=== PATIENT | female | born 1990 | race Caucasian/White ===

== ENCOUNTER 2016-11-11 15:17 | Emergency (ER) | payer SELFPAY ==
[~2016-11-11] VITALS: Ht 160 cm; Wt 63.5 kg
[2016-11-11 17:50] VITALS: BP 141/75
[2016-11-11] MEDS ORDERED: cefTRIAXone SOD 1,000 MG VL ONE (18:12)
[2016-11-11] MEDS ORDERED: cefTRIAXone SOD 1,000 MG VL IM ONE (18:15)
[2016-11-11] MEDS ORDERED: BACITRACIN TOP OINT 1 UD PKG TOP ONE (18:15)
== END 2016-11-11 18:34 | disposition home or self-care (01) ==
LOC: ER 15:23
DX: S92.532B Displaced fracture of distal phalanx of left lesser toe(s), initial encounter for open fracture (principal); Z88.2 Allergy status to sulfonamides; Z90.49 Acquired absence of other specified parts of digestive tract; W22.8XXA Striking against or struck by other objects, initial encounter; Y93.89 Activity, other specified; Y99.8 Other external cause status; Y92.89 Other specified places as the place of occurrence of the external cause
CPT/HCPCS: 73660; 96372; 99284; J0696; L3260